=== PATIENT | male | born 1985 | race Caucasian/White ===

== ENCOUNTER 2020-01-07 21:28 | Emergency (ER) | payer MEDICAID ==
[~2020-01-07] VITALS: Ht 182.9 cm; Wt 114.0 kg
[2020-01-07] MEDS ORDERED: SODIUM CHLORIDE 0.9% 1,000 ML IV ONE (21:58)
[2020-01-07] MEDS ORDERED: LEVETIRACETAM 1000MG/100ML 100 ML IV ONE (22:00)
[2020-01-08 00:03] LABS: CLARITY URINE CLEAR (CLEAR); COLOR URINE YELLOW (YELLOW); KETONES URINE NEGATIVE (NEGATIVE); LEUKOCYTE ESTERASE URINE NEGATIVE (NEGATIVE); NITRITE URINE NEGATIVE (NEGATIVE); OCCULT BLOOD URINE NEGATIVE (NEGATIVE); PH URINE 6.5 (4.5-8.0); PROTEIN URINE NEGATIVE (NEGATIVE); SPECIFIC GRAVITY URINE 1.027 (1.005-1.030)
[2020-01-08 00:22] LABS: BASOPHILS % 0.9 % (0.0-2.0); HEMATOCRIT. 43.9 % (42.0-52.0); HEMOGLOBIN. 15.3 g/dL (14.0-18.0); LYMPHOCYTES % 30.9 % (20.0-50.0); MEAN CORPUSCULAR HEMOGLOBIN 33.2 pg (28.0-32.0); MEAN CORPUSCULAR VOLUME 95.1 fL (80.0-94.0); MEAN PLATELET VOLUME 7.8 fl (7.4-10.4); MONOCYTES % 7.9 % (2.0-8.0); NEUTROPHILS % 59.3 % (40.0-76.0); PLATELET 257 x1000/uL (130-400); RED BLOOD CELL COUNT 4.62 mill/uL (4.7-6.1); RED CELL DISTRIBUTION WIDTH 13.1 % (11.6-14.6)
[2020-01-08 00:26] LABS: *AMPHETAMINES SCREEN URINE NEGATIVE (NEGATIVE); *BARBITURATES SCREEN URINE NEGATIVE (NEGATIVE)
[2020-01-08 00:27] LABS: CHLORIDE 109 mEq/L (98-107)
[2020-01-08 00:27] LABS: *BENZODIAZEPINES SCREEN URINE NEGATIVE (NEGATIVE); *COCAINE SCREEN URINE NEGATIVE (NEGATIVE)
[2020-01-08 00:28] LABS: CANNABINOID URINE SCREEN PRESUMTIVE POSITIVE (NEGATIVE); METHADONE URINE SCREEN NEGATIVE (NEGATIVE); OPIATES URINE SCREEN NEGATIVE (NEGATIVE)
[2020-01-08 00:29] LABS: PHENCYCLIDINE URINE SCREEN NEGATIVE (NEGATIVE)
[2020-01-08 00:34] LABS: ETHANOL BLOOD < 10 mg/dL
[2020-01-08 02:31] VITALS: BP 111/78
== END 2020-01-08 04:08 | disposition home or self-care (01) ==
LOC: ER 21:28
DX: R56.9 Unspecified convulsions (principal)
CPT/HCPCS: 36415; 70450; 80053; 80305; 80320; 81003; 84484; 85025; 93005; 96365; 99285; J1953; J7030; G0480

== ENCOUNTER 2021-11-01 13:36 | Emergency (ER) | payer SELFPAY ==
[~2021-11-01] VITALS: Ht 185.4 cm; Wt 136.0 kg
[~2021-11-01 13:36] MED LIST: HYDR-4001 PO
[2021-11-01 13:45] VITALS: BP 148/95
[2021-11-01] MEDS ORDERED: IBUP-2030 PO (14:07)
[2021-11-01] MEDS ORDERED: HYDR-4001 PO (14:07)
== END 2021-11-01 14:23 | disposition home or self-care (01) ==
LOC: ER 14:02
DX: S62.610A Displaced fracture of proximal phalanx of right index finger, initial encounter for closed fracture (principal); Z76.0 Encounter for issue of repeat prescription; Z91.19 Patient's noncompliance with other medical treatment and regimen; X58.XXXA Exposure to other specified factors, initial encounter; Y93.9 Activity, unspecified; Y92.89 Other specified places as the place of occurrence of the external cause; Y99.8 Other external cause status
CPT/HCPCS: 99282

== ENCOUNTER 2022-03-02 11:48 | Emergency (ER) | payer MEDICAID ==
[~2022-03-02] VITALS: Ht 185.4 cm; Wt 158.0 kg
[~2022-03-02 11:48] MED LIST changes: +IBUP-2030 PO
[2022-03-02 12:35] VITALS: BP 144/89
[2022-03-02] MEDS ORDERED: CIPHCO RIGHT EAR (14:04)
== END 2022-03-02 14:14 | disposition home or self-care (01) ==
LOC: ER 11:48
DX: H60.91 Unspecified otitis externa, right ear (principal)
CPT/HCPCS: 99283

== ENCOUNTER 2022-10-18 14:17 | Emergency (ER) | payer MEDICAID ==
[~2022-10-18] VITALS: Ht 185.4 cm; Wt 163.0 kg
[~2022-10-18 14:17] MED LIST changes: +CIPHCO RIGHT EAR
[2022-10-18] MEDS ORDERED: KETOROLAC 60MG/2ML VIAL IM ONE (15:15)
[2022-10-18] MEDS ORDERED: LORAZEPAM 1MG TABLET PO ONE (15:15)
[2022-10-18 16:12] VITALS: BP 150/95
[2022-10-18] MEDS: LORAZEPAM 1MG TABLET PO NR ×2 (16:12→16:13)
[2022-10-18] MEDS ORDERED: CYCL10TA21 MT (16:15)
[2022-10-18] MEDS ORDERED: IBUP-2029 MT (16:15)
== END 2022-10-18 16:32 | disposition home or self-care (01) ==
LOC: ER 14:17
DX: M54.50 Low back pain, unspecified (principal)
CPT/HCPCS: 72100; 96372; 99283; J1885; Z7610

== ENCOUNTER 2023-01-31 21:24 | Emergency (ER) | payer MEDICAID ==
[~2023-01-31] VITALS: Ht 185.4 cm; Wt 143.0 kg
[~2023-01-31 21:24] MED LIST changes: +CYCL10TA21 MT; +IBUP-2029 MT
[2023-01-31 21:28] VITALS: O2SAT 97
[2023-01-31 22:02] LABS: BASOPHILS % 0.6 % (0.0-2.0); EOSINOPHILS % 0.7 % (0.0-5.0); HEMATOCRIT. 44.8 % (42.0-52.0); HEMOGLOBIN. 15.8 g/dL (14.0-18.0); LYMPHOCYTES % 30.5 % (20.0-50.0); MEAN CORPUSCULAR HGB CONC 35.3 g/dL (31.0-37.0); MEAN CORPUSCULAR VOLUME 93.3 fL (80.0-94.0); MEAN PLATELET VOLUME 7.7 fl (7.4-10.4); MONOCYTES % 5.6 % (2.0-8.0); NEUTROPHILS % 62.6 % (40.0-76.0); PLATELET 293 x1000/uL (130-400); RED CELL DISTRIBUTION WIDTH 12.7 % (11.6-14.6); WHITE BLOOD COUNT 10.7 x1000/uL (4.5-11.0)
[2023-01-31 22:09] LABS: CHLORIDE 109 mEq/L (98-107); INDEX HEMOLYSI 1 (1-3); INDEX ICTERIC 1 (1-4); INDEX LIPEMIC 1 (1-3); POTASSIUM 3.7 mEq/L (3.5-5.1); SODIUM 141 mEq/L (136-145)
[2023-01-31 22:11] LABS: PARTIAL THROMBOPLASTIN TIME 28.2 sec (23.4-31.0); PROTHROMBIN TIME 10.3 sec (9.6-11.0)
[2023-01-31 22:19] LABS: ALANINE AMINOTRANSFERASE 39 IU/L (13-61); ALBUMIN 4.1 g/dL (3.4-5.0); ASPARTATE AMINOTRANSFERASE 18 IU/L (15-37); BILIRUBIN TOTAL 0.8 mg/dL (0.1-1.0); CALCIUM 8.9 mg/dL (8.5-10.1); CARBON DIOXIDE 24 mEq/L (21-32); CREATININE 0.9 mg/dL (0.6-1.3); GLUCOSE 105 mg/dL (70-105); PROTEIN TOTAL 7.8 g/dL (6.0-8.3); TROPONIN I HIGH SENSITIVITY 10 ng/L (<78); UREA NITROGEN BLOOD 20 mg/dL (7-21)
[2023-01-31 22:34] LABS: CLARITY URINE CLEAR (CLEAR); COLOR URINE YELLOW (YELLOW); GLUCOSE URINE NEGATIVE (NEGATIVE); KETONES URINE NEGATIVE (NEGATIVE); LEUKOCYTE ESTERASE URINE NEGATIVE (NEGATIVE); NITRITE URINE NEGATIVE (NEGATIVE); OCCULT BLOOD URINE NEGATIVE (NEGATIVE); PH URINE 5.5 (4.5-8.0); PROTEIN URINE NEGATIVE (NEGATIVE)
[2023-01-31] MEDS ORDERED: HYDROXYZINE 25MG TABLET PO ONE (23:15)
[2023-01-31] MEDS ORDERED: AMLODIPINE 5MG TABLET PO ONE (23:15)
[2023-01-31] MEDS ORDERED: AMLO5TAB88 MT (23:25)
[2023-01-31] MEDS ORDERED: HYDR-459 MT (23:25)
[2023-01-31 23:42] VITALS: BP 130/70; PULSE 80; RESP 18; TEMP 98.4
== END 2023-01-31 23:44 | disposition home or self-care (01) ==
LOC: ER 21:24
DX: I10 Essential (primary) hypertension (principal); R06.00 Dyspnea, unspecified
CPT/HCPCS: 36415; 71045; 80053; 81003; 84484; 85025; 93005; 99285

== ENCOUNTER 2023-03-21 22:43 | Emergency (ER) | payer SELFPAY ==
[~2023-03-21] VITALS: Ht 182.9 cm; Wt 148.7 kg
[~2023-03-21 22:43] MED LIST changes: +AMLO5TAB88 MT; +HYDR-459 MT
[2023-03-21 22:54] VITALS: O2SAT 96
[2023-03-21] MEDS ORDERED: KETOROLAC 30MG/ML VIAL IM ONE (23:30)
[2023-03-22 00:27] VITALS: BP 147/85
[2023-03-22] MEDS ORDERED: NAPR-1176 MT (00:29)
[2023-03-22 00:47] VITALS: PULSE 91; RESP 16; TEMP 98.1
== END 2023-03-22 00:48 | disposition home or self-care (01) ==
LOC: ER 22:43
DX: M94.0 Chondrocostal junction syndrome [Tietze] (principal); I10 Essential (primary) hypertension
CPT/HCPCS: 71100; 99283; 96372; J1885; Z7610